=== PATIENT | male | born 1985 | race Caucasian/White ===

== ENCOUNTER 2017-05-01 17:18 | Inpatient (IN) | payer SELFPAY ==
[2017-05-01] VITALS (41 sets, daily range): BP systolic 122–206; BP diastolic 81–139; PULSE 63–79; TEMP 97.4–97.9; O2SAT 93–98
[~2017-05-01] VITALS: Ht 160 cm; Wt 83.8 kg
[~2017-05-01 17:18] MED LIST: HYDRODIURIL50 MG PO; MOTRIN 600600 MG/TAB PO; NO HOME MEDICATIONS; PERCOCET 325 MG1 TA2 PO; PRINZIDE 12.5 M1 TAB PO
[2017-05-01 18:21] LABS: BASO # 0.1 (0.0-0.2); BASO % 0.9 % (0.0-2.0); EOS # 0.1 (0.0-0.7); EOS % 0.6 % (0-4.0); GRAN # 5.8 (1.4-6.5); GRAN % 62.5 % (42.2-75.2); HEMATOCRIT 50.2 % (42.0-52.0); HEMOGLOBIN 17.7 g/dl (13.5-18.0); LYMPH # 2.5 (1.2-3.4); LYMPH % 27.1 % (20.0-51.0); MEAN CELL VOLUME 87 fl (80.0-100.0); MEAN CORPUSCULAR HEMOGLOBIN 31 pg (27.0-31.0); MEAN CORPUSCULAR HGB CONC 35 g/dl (33.0-37.0); MEAN PLATELET VOLUME 10.2 fl (7.4-10.4); MONO # 0.7 (0.1-0.6); PLATELET COUNT 210 K/mm3 (130-400); WHITE BLOOD COUNT 9.3 K/mm3 (4.8-10.8)
[2017-05-01 18:25] LABS: PROTHROMBIN TIME 11.2 SECONDS (9.7-12.8)
[2017-05-01 18:27] LABS: PARTIAL THROMBOPLASTIN TIME 32.3 SECONDS (26.0-37.0)
[2017-05-01 18:32] LABS: ADJUSTED CALCIUM 8.7 mg/dL (8.4-10.2); ALBUMIN 5.2 gm/dL (3.5-5.0); BILIRUBIN,TOTAL 0.9 mg/dL (0.0-1.0); CALCIUM 9.7 mg/dL (8.4-10.2); CREATININE, serum 1.13 mg/dL (0.66-1.25); POTASSIUM 3.3 mmol/L (3.4-5.0); TOTAL PROTEIN 8.6 gm/dL (6.4-8.2)
[2017-05-01 18:43] LABS: TROPONIN-I 0.021 ng/mL (0.000-0.034)
[2017-05-01 22:26] LABS: TROPONIN-I 0.022 ng/mL (0.000-0.034)
[2017-05-01 22:45] LABS: THYROID STIMULATING HORMONE 1.66 uIU/mL (0.465-4.680)
[2017-05-02] VITALS (587 sets, daily range): BP systolic 117–137; BP diastolic 72–94; PULSE 55–73; TEMP 97.4–97.7; O2SAT 95–100
[2017-05-02 06:24] LABS: BASO % 0.4 % (0.0-2.0); EOS # 0.1 (0.0-0.7); EOS % 0.6 % (0-4.0); GRAN # 5.6 (1.4-6.5); GRAN % 59.3 % (42.2-75.2); LYMPH # 2.9 (1.2-3.4); MEAN CELL VOLUME 89 fl (80.0-100.0); MEAN CORPUSCULAR HEMOGLOBIN 31 pg (27.0-31.0); MEAN CORPUSCULAR HGB CONC 35 g/dl (33.0-37.0); MEAN PLATELET VOLUME 10.8 fl (7.4-10.4); MONO # 0.8 (0.1-0.6); MONO % 8.1 % (1.7-9.3); PLATELET COUNT 190 K/mm3 (130-400); RED BLOOD COUNT 4.74 M/mm3 (4.20-5.60); WHITE BLOOD COUNT 9.5 K/mm3 (4.8-10.8)
[2017-05-02 06:30] LABS: HEMOGLOBIN 14.7 g/dl (13.5-18.0)
[2017-05-02 06:34] LABS: CALCIUM 8.6 mg/dL (8.4-10.2); CHOLESTEROL RISK RATIO 5.3; CREATININE, serum 1.3 mg/dL (0.66-1.25); POTASSIUM 3.6 mmol/L (3.4-5.0)
[2017-05-02 07:46] LABS: COLLECTION METHOD CLEAN CATCH
[2017-05-02 08:00] LABS: MUCOUS Present /lpf; PH 6 (5-8); SQUAMOUS EPITHELIAL None Seen /hpf; URINE APPEARANCE Hazy; URINE BACTERIA None Seen /hpf; URINE BILIRUBIN Negative (NEGATIVE); URINE BLOOD 2+ (NEGATIVE); URINE COLOR Amber; URINE GLUCOSE Negative (NEGATIVE); URINE KETONE Negative (NEGATIVE); URINE LEUKOCYTE ESTERASE Negative (NEGATIVE); URINE PROTEIN(semi-quant) 2+ (NEGATIVE); URINE RBC 0-2 /hpf; URINE UROBILINOGEN Negative (NEGATIVE); URINE WBC 0-2 /hpf
[2017-05-02] MEDS ORDERED: MULTI VITAMINS1 TAB PO (11:34)
[2017-05-02] MEDS ORDERED: FOLIC ACID 11 MG/TA1 PO (11:34)
[2017-05-02] MEDS ORDERED: ZESTRIL40 MG PO (11:35)
[2017-05-02] MEDS ORDERED: THIAMINE 1100 MG/TAB PO (11:35)
[2017-05-02] MEDS ORDERED: HCTZ12.5TAB PO (11:36)
[2017-05-02 15:14] LABS: AMPHETAMINE URINE NEGATIVE; BARBITURATES URINE NEGATIVE; BENZODIAZEPINES URINE NEGATIVE; BUPRENORPHINE URINE NEGATIVE; METHADONE URINE NEGATIVE; OPIATES URINE NEGATIVE; OXYCODONE URINE NEGATIVE; PHENCYCLIDINE URINE NEGATIVE; PROPOXYPHENE URINE NEGATIVE; THC CANNABINOIDS URINE NEGATIVE; TRICYCLIC ANTIDEPRESS URINE NEGATIVE
== END 2017-05-02 14:00 | disposition home or self-care (01) | DRG 305 ==
LOC: COL.ER 17:18 → ICU 19:41
PROVIDERS: Emergency Medicine; Nurse Practitioner Family
DX: I16.0 Hypertensive urgency (principal); E87.6 Hypokalemia; F10.10 Alcohol abuse, uncomplicated; Y90.0 Blood alcohol level of less than 20 mg/100 ml; I51.7 Cardiomegaly; Z91.14 Patient's other noncompliance with medication regimen
CPT/HCPCS: 99222-AI; J3411; J7030; J7050

== ENCOUNTER → 2020-09-03 | Outpatient (CLI) | payer SELFPAY ==
[~2020-09-03] MED LIST changes: +FOLIC ACID 11 MG/TA1 PO; +HCTZ12.5TAB PO; +MULTI VITAMINS1 TAB PO; +THIAMINE 1100 MG/TAB PO; +ZESTRIL40 MG PO
[2020-09-03 14:34] LABS: CALCIUM 9.6 mg/dL (8.4-10.2); CREATININE, serum 2.15 (0.66-1.25); POTASSIUM 4.9 mmol/L (3.4-5.0)
== END ==
LOC: COL.LAB 12:35
PROVIDERS: Registered Nurse
DX: I10 Essential (primary) hypertension (principal); N17.9 Acute kidney failure, unspecified

== ENCOUNTER → 2020-09-26 | Outpatient (CLI) | payer SELFPAY | LOC: COL.RAD 09:25 | DX: I10 Essential (primary) hypertension (principal); N17.9 Acute kidney failure, unspecified ==

== ENCOUNTER → 2020-10-31 | Outpatient (CLI) | payer SELFPAY | LOC: COL.VAS 10-17 08:00 | DX: I10 Essential (primary) hypertension (principal); N17.9 Acute kidney failure, unspecified ==

== ENCOUNTER → 2020-11-12 | Outpatient (CLI) | payer SELFPAY | LOC: COL.RAD 09:00 | DX: I10 Essential (primary) hypertension (principal); N17.9 Acute kidney failure, unspecified ==

== ENCOUNTER 2021-07-15 00:57 | Emergency (ER) | payer SELFPAY ==
[~2021-07-15] VITALS: Ht 167.6 cm; Wt 84.1 kg
[2021-07-15 01:01] VITALS: TEMP 98
[2021-07-15] MEDS ORDERED: CLEOCIN HCL300 MG PO (01:26)
[2021-07-15 01:39] VITALS: BP 154/104; PULSE 78
== END 2021-07-15 01:39 | disposition home or self-care (01) ==
LOC: COL.ER 00:57
DX: K11.21 Acute sialoadenitis (principal); I10 Essential (primary) hypertension; Z88.0 Allergy status to penicillin; Z79.899 Other long term (current) drug therapy
CPT/HCPCS: J1100

== ENCOUNTER 2021-07-18 15:10 | Emergency (ER) | payer SELFPAY ==
[~2021-07-18] VITALS: Ht 167.6 cm; Wt 84.1 kg
[~2021-07-18 15:10] MED LIST changes: +CLEOCIN HCL300 MG PO
[2021-07-18 15:16] VITALS: BP 150/101; TEMP 98.1
[2021-07-18 15:59] LABS: HEMATOCRIT 47.2 % (42.0-52.0); HEMOGLOBIN 16.3 g/dl (13.5-18.0); MEAN CELL VOLUME 85 fl (80.0-100.0); MEAN CORPUSCULAR HEMOGLOBIN 29 pg (27-31); MEAN CORPUSCULAR HGB CONC 35 g/dl (33.0-37.0); PLATELET COUNT 243 K/mm3 (130-400); RED BLOOD COUNT 5.57 M/mm3 (4.20-5.60); REDCELL DISTRIBUTION WIDTH-CV 13.1 % (11.5-14.5)
[2021-07-18 16:17] LABS: ALBUMIN 4.2 gm/dL (3.5-5.0); BILIRUBIN,TOTAL 0.3 mg/dL (0.2-1.2); C-REACTIVE PROTEIN 0.07 mg/dL (0.00-0.50); CALCIUM 9.5 mg/dL (8.4-10.2); CREATININE, serum 2.2 mg/dL (0.72-1.25); POTASSIUM 4.6 mmol/L (3.5-4.5); TOTAL PROTEIN 7.6 gm/dL (6.2-8.1)
[2021-07-18 16:34] LABS: EOSINOPHIL 4 % (0-4); LYMPHOCYTE 31 % (20.0-51.0); NEUTROPHILS 56 % (42.0-75.2); PLATELET ESTIMATE NORMAL (NORMAL)
[2021-07-18 17:16] VITALS: PULSE 64
[2021-07-22 11:51] LABS: MUMPS AB IgG INDEX 3.6 (()); MUMPS VIRUS ANTIBODY,IGG Positive (())
== END 2021-07-18 17:13 | disposition home or self-care (01) ==
LOC: COL.ER 15:10
PROVIDERS: Family Medicine
DX: R05.9 Cough, unspecified (principal)

== ENCOUNTER 2024-02-21 19:38 | Emergency (ER) | payer SELFPAY ==
[~2024-02-21] VITALS: Ht 162.6 cm; Wt 88.6 kg
[2024-02-21 19:46] VITALS: TEMP 98.3
[2024-02-21 20:14] LABS: BASO # 0.1 K/mm3 (0.0-0.2); BASO % 0.6 % (0.0-2.0); EOS # 0.2 K/mm3 (0.0-0.7); EOS % 2.6 % (0.0-4.0); GRAN # 4.8 K/mm3 (1.4-6.5); GRAN % 55.8 % (42.2-75.2); HEMATOCRIT 43.8 % (42.0-52.0); HEMOGLOBIN 15.3 g/dl (13.5-18.0); LYMPH # 2.7 K/mm3 (1.2-3.4); LYMPH % 32.1 % (20.0-51.0); MEAN CELL VOLUME 85 fl (80.0-100.0); MEAN CORPUSCULAR HEMOGLOBIN 30 pg (27-31); MEAN CORPUSCULAR HGB CONC 35 g/dl (33.0-37.0); MONO # 0.7 K/mm3 (0.1-0.6); MONO % 8.3 % (1.7-9.3); PLATELET COUNT 223 K/mm3 (130-400); RED BLOOD COUNT 5.13 M/mm3 (4.20-5.60); REDCELL DISTRIBUTION WIDTH-CV 12.7 % (11.5-14.5)
[2024-02-21] MEDS ORDERED: NS 1,000 ML IV ONE (20:15)
[2024-02-21 20:30] LABS: ALBUMIN 4.5 g/dL (3.5-5.0); BILIRUBIN,TOTAL 0.3 mg/dL (0.2-1.2); CALCIUM 9.9 mg/dL (8.4-10.2); CREATININE, serum 3.11 mg/dL (0.72-1.25); TOTAL PROTEIN 7.9 g/dl (6.2-8.1)
[2024-02-21] MEDS ORDERED: Sodium Bicarbonate 650 MG TAB PO ONE (21:30)
[2024-02-21] MEDS ORDERED: SODIUM BICARBO650 MG PO (21:45)
[2024-02-21] MEDS ORDERED: Home oxyCODONE/Acetaminophen 5/325 MG #4 TAB/PACK PO ONE (22:00)
[2024-02-21 22:04] VITALS: BP 143/95; PULSE 88
== END 2024-02-21 22:04 | disposition home or self-care (01) ==
LOC: COL.ER 19:38
PROVIDERS: Physician Assistant
DX: R51.9 Headache, unspecified (principal); I12.9 Hypertensive chronic kidney disease with stage 1 through stage 4 chronic kidney disease, or unspecified chronic kidney disease; N18.4 Chronic kidney disease, stage 4 (severe)
CPT/HCPCS: J0780; J7030